=== PATIENT | female | born 1965 | race Caucasian/White ===

== ENCOUNTER → 2021-03-09 | Outpatient (CLI) | payer OTHER | LOC: KOH-I 14:49 | DX: E04.1 Nontoxic single thyroid nodule (principal) | CPT/HCPCS: 76536 ==

== ENCOUNTER → 2021-08-18 | Outpatient (CLI) | payer OTHER ==
[~2021-08-18] MED LIST: CLARITIN10 M2 PO; CYCLOBENZAPRINE10 MG PO; EFFEXOR XR75 MG PO; LISINOPRIL5 MG PO; MECLIZINE HCL12.5 MG PO; PRILOSEC OTC20 MG PO
[2021-08-18 15:59] LABS: HEMOGLOBIN 10.3 gm/dl (12.3-15.3); RED BLOOD COUNT 3.35 M/UL (4.00-5.10); WHITE BLOOD COUNT 5.3 K/UL (4.5-11.0)
[2021-08-18 16:13] LABS: BUN/CREATININE RATIO 17 (0-10)
== END ==
LOC: LAB 15:31
PROVIDERS: Nurse Practitioner Family
DX: R53.1 Weakness (principal)
CPT/HCPCS: 36415; 80048; 82728; 83036; 83540; 83550; 85025

== ENCOUNTER 2021-08-22 16:57 | Observation (INO) | payer OTHER ==
[~2021-08-22] VITALS: Ht 154.9 cm; Wt 60.0 kg
[2021-08-22 17:42] LABS: HEMOGLOBIN 10.3 gm/dl (12.3-15.3); RED BLOOD COUNT 3.39 M/UL (4.00-5.10)
[2021-08-22 18:08] LABS: BUN/CREATININE RATIO 14 (0-10)
[2021-08-22] MEDS ORDERED: PRILOSEC OTC20 MG PO (23:42)
[2021-08-22] MEDS ORDERED: LISINOPRIL5 MG PO (23:42)
[2021-08-22] MEDS ORDERED: EFFEXOR XR75 MG PO (23:43)
[2021-08-22] MEDS ORDERED: MECLIZINE HCL12.5 MG PO (23:43)
[2021-08-22] MEDS ORDERED: CLARITIN10 M2 PO (23:43)
[2021-08-22] MEDS ORDERED: CYCLOBENZAPRINE10 MG PO (23:46)
[2021-08-23] MEDS ORDERED: TOPAMAX25 MG PO (15:56)
== END 2021-08-23 18:20 | disposition home or self-care (01) ==
LOC: ER1 16:57 → CDU 22:30 → MED SURG 4 22:30
PROVIDERS: Emergency Medicine; ADMIT Internal Medicine
DX: H53.9 Unspecified visual disturbance (principal); Z20.822 Contact with and (suspected) exposure to COVID-19; I10 Essential (primary) hypertension; E78.5 Hyperlipidemia, unspecified; G43.909 Migraine, unspecified, not intractable, without status migrainosus; D64.9 Anemia, unspecified; F17.210 Nicotine dependence, cigarettes, uncomplicated; Z79.899 Other long term (current) drug therapy
CPT/HCPCS: 36415; 70450; 70551; 71045; 80053; 80061; 81001; 82550; 82553; 82607; 82746; 83540; 83550; 83735; 84100; 84439; 84443; 84484; 85025; 85652; 86140; 93005; 99285; G0378; U0002

== ENCOUNTER → 2021-09-20 | Outpatient (CLI) | payer OTHER ==
[~2021-09-20] MED LIST changes: +CRESTOR40 MG PO; +DICLOFENAC GEL 1% TOP; +DOTTI TOP; +EMGALITY120 MG/1 M INJ; +IRON325 M1 PO; +LOW DOSE ASPIRI81 MG PO; +OMEPRAZOLE40 MG PO; +ONDANSETRON ODT4 MG PO; +OYSTERCAL-D 501 EACH PO; +RIZATRIPTAN10 M1 PO; +TOPAMAX25 MG PO; +TOPAMAX50 MG PO; +VISTARIL50 MG PO
[2021-09-20 10:53] LABS: HEMOGLOBIN 11.2 gm/dl (12.3-15.3); RED BLOOD COUNT 3.71 M/UL (4.00-5.10); WHITE BLOOD COUNT 9.9 K/UL (4.5-11.0)
== END ==
LOC: OPSV2 09:55
PROVIDERS: Obstetrics & Gynecology
DX: Z01.818 Encounter for other preprocedural examination (principal); T83.721A Exposure of implanted vaginal mesh into vagina, initial encounter; Y76.2 Prosthetic and other implants, materials and accessory obstetric and gynecological devices associated with adverse incidents; Y83.2 Surgical operation with anastomosis, bypass or graft as the cause of abnormal reaction of the patient, or of later complication, without mention of misadventure at the time of the procedure
CPT/HCPCS: 71046; 80053; 81001; 85025

== ENCOUNTER → 2021-09-25 | Outpatient (CLI) | payer OTHER ==
[2021-09-25 14:43] LABS: HEMOGLOBIN 10.6 gm/dl (12.3-15.3); RED BLOOD COUNT 3.48 M/UL (4.00-5.10); WHITE BLOOD COUNT 8.8 K/UL (4.5-11.0)
== END ==
LOC: LAB 14:07
PROVIDERS: Nurse Practitioner Primary Care
DX: D64.9 Anemia, unspecified (principal); R79.89 Other specified abnormal findings of blood chemistry; R73.03 Prediabetes
CPT/HCPCS: 36415; 80053; 81001; 83036; 85025

== ENCOUNTER → 2021-09-26 | Outpatient (CLI) | payer OTHER | LOC: US 09-25 14:30 → EXRD 13:30 | DX: R79.89 Other specified abnormal findings of blood chemistry (principal) | CPT/HCPCS: 76857 ==

== ENCOUNTER → 2021-12-06 | Outpatient (CLI) | payer OTHER | LOC: US 14:06 | DX: M79.89 Other specified soft tissue disorders (principal) | CPT/HCPCS: 93971 ==

== ENCOUNTER → 2021-12-07 | Outpatient (CLI) | payer OTHER ==
[2021-12-07 16:22] LABS: BUN/CREATININE RATIO 32 (0-10)
== END ==
LOC: LAB 15:22
PROVIDERS: Nurse Practitioner Primary Care
DX: R07.89 Other chest pain (principal)
CPT/HCPCS: 36415; 71046; 80053

== ENCOUNTER → 2021-12-12 | Outpatient (CLI) | payer OTHER | LOC: RAD 10:45 | DX: M25.561 Pain in right knee (principal); M25.562 Pain in left knee; M54.50 Low back pain, unspecified; G89.29 Other chronic pain; M47.814 Spondylosis without myelopathy or radiculopathy, thoracic region | CPT/HCPCS: 72072; 73562 ==

== ENCOUNTER → 2022-01-15 | Outpatient (CLI) | payer OTHER | LOC: HEART 5 09:30 | DX: R94.31 Abnormal electrocardiogram [ECG] [EKG] (principal); R07.9 Chest pain, unspecified | CPT/HCPCS: 93306 ==